=== PATIENT | male | born 1970 | race Caucasian/White ===

== ENCOUNTER → 2020-09-28 01:34 | Outpatient (CLI) | payer BC, SELFPAY ==
[2020-09-29 14:09] LABS: SARS-CoV-2 RNA PCR Positive
== END ==
PROVIDERS: PCP Physician Assistant; Visit Provider Orthopaedic Surgery
DX: Z01.812 Encounter for preprocedural laboratory examination (principal); U07.1 COVID-19
CPT/HCPCS: C9803; U0003; U0005

== ENCOUNTER 2020-11-16 01:15 | Day surgery (SDC) | payer BC, SELFPAY ==
[2020-09-27 09:38] VITALS: BMI 28.1
[2020-11-11 10:32] VITALS: BMI 28.1
[2020-11-16] VITALS (11 sets, daily range): BP systolic 120–157; BP diastolic 76–97; PULSE 62–98; RESP 10–16; TEMP 36.4–36.8; O2SAT 94–100
--- NOTE | 2020-11-16 07:22 | WPDHPUPDATE1 ---
History and Physical Update Update Date/Time: 11/16/20 07:22 History and Physical has been reviewed, including an updated exam of the patient. There are NO changes in the patient's condition. Risks, benefits, and alternatives have been discussed and questions answered. Patient agrees to proceed with procedure.
[2020-11-16] MEDS: ACETAMINOPHEN 500 MG TABLET 1000 MG PO (09:04)
[2020-11-16] MEDS: CELECOXIB 200 MG CAPSULE PO (09:04)
[2020-11-16] MEDS: LACTATED RINGERS 1,000 ML 30 ML IV CONT ×2 (09:05→12:55)
--- NOTE | 2020-11-16 09:27 | WPDANESEPPF ---
Anes - Initial Pre Proc Eval Procedure: Operation Date: 11/16/20 10:30 Proposed Procedures p Left Knee Arthroscopy - Sebastian Gay MD Date/Time: 11/16/20 09:27 Surgeon: Sebastian Gay MD Pre Op Diagnosis: Left knee Medial Meniscus tear Patient Data Age: 50 Gender: M Height: 1.73 m Weight: 82.2 kg Last Vital Signs Temp 36.8 C 11/16/20 08:43 Pulse 98 11/16/20 08:43 Resp 16 11/16/20 08:43 BP 130/94 H 11/16/20 08:43 Pulse Ox 98 11/16/20 08:43 Allergies Allergy/AdvReac Type Severity Reaction Status Date / Time No Known Allergies Allergy Verified 09/20/20 11:56 Home Medications Medication Instructions Recorded Confirmed Type fluticasone 250 mcg-salmeterol 50 1 inh INHALATION BID #60 each 05/18/20 11/16/20 Rx mcg/dose blistr powdr for inhalation hydrocodone 5 mg-acetaminophen 325 1 tablet PO BID PRN #30 tablet 10/04/20 11/16/20 Rx mg tablet albuterol sulfate [Ventolin HFA] 2 puff INHALATION Q4-6H PRN 11/16/20 11/16/20 History Patient hx anesthesia problems: none Family hx anesthesia problems: none PMFSH Past Medical History Medical History ACL tear Acute pain of left knee Asthma HTN (hypertension) Patellofemoral chondrosis of left knee Right knee pain Tear of meniscus of knee Family History Family History Mother Patient's mother is in good health Father Patient's father is in good health Sibling Patient's sister is in good health, Onset Age: 36 Social History Social History Smoking status: Never smoker Second hand tobacco smoke exposure: No Alcohol intake: current Drinks per week: 3 Substance use: never Substance use type: does not use Living arrangements: alone Anes - Eval Final PreProcedure Day of Procedure 11/16/20 09:27 Patient weight: overweight Heart: regular rate and rhythm Lungs: clear to auscultation Airway: Mallampati scale class II Neurological: alert and oriented Last oral intake: >/= 8 hours ASA classification: II Emergent: no Anesthetic plan: proceed Anesthesia type and monitoring: general LMA and standard monitoring Informed Consent: The patient's anesthetic plan and its attendant risks and benefits were discussed with the patient/family/POA. Questions were solicited and answers provided to the satisfaction of the patient/family/POA.
--- NOTE | 2020-11-16 10:25 | PM.IMHP ---
H&P: HPI History of Present Illness Date/Time: 11/16/20 10:25 Chief Complaint: LEFT KNEE MEDIAL MENISCUS TEAR Narrative: Pt. presents for Lt knee pain. His last cortisone injection was performed on 04/29/20 which did give some pain relief. Pt has undergone multiple knee arthroscopies (x2). Review of Systems Review of Systems: All systems reviewed & are unremarkable except as noted in HPI and below Constitutional: Constitutional: Denies headache(s) and Denies weakness Eyes: Eyes: Denies blurry vision, Denies change in vision and Denies loss of vision ENT: Denies dizziness, Denies dry mouth, Denies headache(s) and Denies nasal congestion Cardiovascular: Cardiovascular: Denies chest pain, Denies syncope, Denies leg edema and Denies dyspnea on exertion Respiratory: Respiratory: Denies cough and Denies dyspnea on exertion Gastrointestinal: Gastrointestinal: Denies abdominal pain, Denies constipation and Denies diarrhea Genitourinary: Genitourinary: Denies urinary frequency Musculoskeletal: Musculoskeletal: Reports as per HPI and Denies numbness Integumentary/Breasts: Skin/Breast: Reports system reviewed and no additional complaints, except as docu Neurologic: Denies dizziness, Denies syncope, Denies headache(s), Denies loss of vision, Denies numbness and Denies weakness Psychiatric: Psychiatric: Reports no additional psychiatric complaints Endocrine: Endocrine: Reports no additional endocrine complaints Hematologic/Lymphatic: Hematologic/Lymphatic: Reports no additional hematologic/lymphatic complaints [facility] Past Medical History Medical History ACL tear Acute pain of left knee Asthma HTN (hypertension) Patellofemoral chondrosis of left knee Right knee pain Tear of meniscus of knee Family History Family History Mother Patient's mother is in good health Father Patient's father is in good health Sibling Patient's sister is in good health, Onset Age: 36 Social History Social History Smoking status: Never smoker Second hand tobacco smoke exposure: No Alcohol intake: current Drinks per week: 3 Substance use: never Substance use type: does not use Living arrangements: alone Meds Home Medications and Allergies Home Medications Medication Instructions Recorded Confirmed Type fluticasone 250 mcg-salmeterol 50 1 inh INHALATION BID #60 each 05/18/20 11/16/20 Rx mcg/dose blistr powdr for inhalation hydrocodone 5 mg-acetaminophen 325 1 tablet PO BID PRN #30 tablet 10/04/20 11/16/20 Rx mg tablet albuterol sulfate [Ventolin HFA] 2 puff INHALATION Q4-6H PRN 11/16/20 11/16/20 History Allergies Allergy/AdvReac Type Severity Reaction Status Date / Time No Known Allergies Allergy Verified 09/20/20 11:56 Vital Signs Vital Signs - 24 hr 11/16/20 08:43 Temperature 36.8 C Pulse Rate 98 Respiratory Rate 16 Blood Pressure 130/94 H Pulse Oximetry 98 Exam Extrem: General: capillary refill normal, no clubbing and no cyanosis Right lower extremity: normal to inspection, full ROM, normal capillary refill and knee; no cyanosis and no edema Left lower extremity: normal to inspection, normal capillary refill, knee Details: tenderness, swelling, abnormal ROM (0 TO 120 DEG) Details: pain with active ROM Details: with extension and with flexion and pain with passive ROM Details: with extension and with flexion, knee ligament exam abnormal, Shazia's Test Details: positive medially and laterally and crepitus; no ecchymosis and foot; abnormal ROM, no cyanosis, no edema and joint enlargement noted Assessment and Plan Assessment and plan (1) Tear of meniscus of knee: Qualifiers: Tear current or old: current Encounter type: subsequent encounter Meniscus of knee: lateral Meniscus tear of knee type: complex
[2020-11-16] MEDS: ceFAZolin 2 GM/D5W 50 ML 2 GM/50 ML BAG IVPB (10:39)
[2020-11-16] MEDS: BUPIVACAINE HCL 0.5% PF 30 ML VIAL INFILTRATE (11:11)
--- NOTE | 2020-11-16 11:36 | W.PM.PROC2 ---
Procedure Note - Detailed Date of Procedure 11/16/20 Pre-op Diagnosis Left knee Medial Meniscus tear Post-op Diagnosis same Procedure Performed LEFT KNEE SCOPE Surgeon Sebastian Gay MD Anesthesia general Description of Procedure PATIENT WAS TAKEN TO THE OR. LEFT LEG WAS PREPPED AND DRAPED STERILE. TROCARS WERE PLACED IN THE USUAL FASHION. CAMERA WAS INTRODUCED. THERE WAS CHONDROMALACIA TO THE PATELLA FEMORAL JOINT. MOSTLY THERE WAS GRADE 3 CHONDROMALACIA TO THE TROCHLEA.THERE WAS A LOT OF SYNOVITIS IN ALL COMPARTMENTS. THE MEDIAL COMPARTMENT SHOWED CHONDROMALACIA TO THE MEDIAL FEMORAL CONDYLE. A SHAVER WAS USED TO PREFORM A CHONDROPLASTY. THERE WAS A PRIOR MENISCECTOMY NOTED TO THE MEDIAL MENISCUS. THERE WAS A RECURRENT COMPLEX MEDIAL MENISCUS TEAR. THE TEAR WAS RESECTED WITH A BITER AND A SHAVER DOWN TO A SMOOTH BASE. ABOUT 10% OF THE RECURRENT MENISCUS TEAR WAS REMOVED. THE ACL WAS INTACT. THE LATERAL MENISCUS WAS NOT TORN. THE LATERAL COMPARTMENT HAD NO CHONDROMALACIA AT THE LATERAL PLATEAU OR LATERAL FEMORAL CONDYLE. SYNOVECTOMY WS PREFORMED IN THE LATERAL COMPARTMENT. THE PATELLO FEMORAL JOINT UNDERWENT CHONDROPLASTY. THERE WAS GRADE 2 CHONDROMALACIA IN MOST OF THE TROCHLEA AND PART OF THE PATELLA. SYNOVECTOMY WAS PREFORMED IN THE SUPERIOR MEDIAL COMPARTMENT. THE WOUNDS WERE APPROXIMATED WITH 4.0 NYLON. STERILE DRESSING WAS APPLIED. PATIENT WAS EXTUBATED. Estimated Blood Loss 5 Complications No immediate complications Condition stable Disposition PACU
[2020-11-16] MEDS: fentaNYL CITRATE INJ (*CRX) 100 MCG/2 ML VIAL 25 MCG IV PUSH ×8 (12:05→13:08)
[2020-11-16] MEDS: oxyCODONE HCL (*CRX) 5 MG TAB IR PO (13:34)
== END 2020-11-16 14:00 | disposition home or self-care (01) ==
PROVIDERS: PCP Physician Assistant; Visit Provider Orthopaedic Surgery
PROC: (CPT 29870; principal; 2020-11-16 10:30)
DX: S83.232A Complex tear of medial meniscus, current injury, left knee, initial encounter (principal); X58.XXXA Exposure to other specified factors, initial encounter; M65.862 Other synovitis and tenosynovitis, left lower leg; M94.262 Chondromalacia, left knee; Z79.51 Long term (current) use of inhaled steroids; J45.909 Unspecified asthma, uncomplicated; I10 Essential (primary) hypertension
CPT/HCPCS: 29881; A9270; J0690; J1100; J2250; J2405; J2704; J3010; J7120

== ENCOUNTER 2023-08-22 14:39 | Outpatient (CLI) | payer BC, SELFPAY ==
[2023-08-22 15:56] LABS: Basophils Absolute Auto 0.1 K/mm3 (0.0-0.1); Basophils Percent Auto 1.9 % (0.2-1.2); Eosinophils Absolute Auto 0.2 K/mm3 (0-0.3); Eosinophils Percent Auto 3.6 % (0-4.4); Hematocrit 43.7 % (42.0-52.0); Hemoglobin 14.2 g/dL (14.0-18.0); Immature Granulocyte Absolute 0.02 K/mm3 (0.00-0.031); Immature Granulocyte Percent A 0.3 % (0-0.5); Lymphocytes Absolute Auto 1.45 K/mm3 (0.9-3.2); Lymphocytes Percent Auto 22.7 % (18.3-44.2); Mean Corpuscular HGB Conc 32.5 g/dl (32-36); Mean Corpuscular Hemoglobin 32.4 pg (26-34); Mean Corpuscular Volume 99.8 fl (80-100); Mean Platelet Volume 8.9 fl (7.4-10.4); Monocytes Absolute Auto 0.6 K/mm3 (0.1-0.6); Monocytes Percent Auto 9.7 % (2.6-8.5); Neutrophils Percent Auto 61.8 % (45.5-73.1); Platelet Count Result 374 k/mm3 (150-375); Red Blood Count 4.38 M/mm3 (4.6-6.20); Red Cell Distribution Width 13.3 % (11.5-14.5); White Blood Count 6.4 K/mm3 (4.5-10.0)
[2023-08-22 16:39] LABS: Alanine Aminotransferase 51 U/L (6-50); Alkaline Phosphatase 52 U/L (38-126); Anion Gap 11 mmol/L (4-12); Aspartate Amino Transferase 52 U/L (17-59); Bilirubin,Total 0.8 mg/dL (0.2-1.3); Blood Urea Nitrogen 14 mg/dL (9-20); Calcium 9.8 mg/dL (8.4-10.2); Carbon Dioxide 24 mmol/L (22-30); Chloride 108 mmol/L (98-107); Cholesterol 255 mg/dL (0-200); Estimated Glomerular Filt Rate > 60; Glucose 89 mg/dL (65-110); LDL Cholesterol Direct 111 mg/dL; Potassium 4.1 mmol/L (3.4-5.0); Sodium 143 mmol/L (137-145); Triglycerides 50 mg/dL (<150)
[2023-08-22 16:59] LABS: Prostate Specific Antigen 0.6 ng/mL (< OR = 4.0)
[2023-08-22 20:58] LABS: HDL Direct 112 mg/dL
== END 2023-08-22 14:40 | disposition home or self-care (01) ==
LOC: ANHLAB 14:41
PROVIDERS: PCP Physician Assistant; Visit Provider Physician Assistant
DX: Z00.00 Encounter for general adult medical examination without abnormal findings (principal); Z12.5 Encounter for screening for malignant neoplasm of prostate
CPT/HCPCS: 36415; 80053; 80061; 84153; 84443; 85025; G0103